=== PATIENT | male | born 1975 | race American Indian/Alaskan Native ===

== ENCOUNTER 2021-12-06 05:25 | Emergency (ER) | payer OTHER ==
[2021-12-06] MEDS ORDERED: SODIUM CHLORIDE 0.9% 1000 ML 1,000 ML IV ONE (05:34)
[2021-12-06] MEDS ORDERED: SODIUM CHLORIDE 0.9% 1000 ML 1,000 ML ONE (05:36)
[2021-12-06 05:57] LABS: Basophils % (Auto) 0.6 % (0.0-1.8); Eosinophils % (Auto) 0.8 % (0.0-4.3); Hematocrit 36.5 % (35.5-45.6); Hemoglobin 12.9 gm/dl (11.8-15.2); Mean Corpuscular HGB Conc 35 % (32-34); Mean Corpuscular Volume 87 fl (84-94); Monocytes # (Auto) 0.5 K/mm3 (0.0-0.8); Monocytes % (Auto) 8.1 % (0.0-7.3); Red Blood Count 4.21 M/mm3 (3.65-5.03); Red Cell Distribution Width 13.7 % (13.2-15.2)
[2021-12-06 05:58] LABS: Platelet Count 384 K/mm3 (140-440)
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
[2021-12-06 06:10] LABS: INR 0.88 (0.87-1.13)
[2021-12-06] MEDS ORDERED: fentaNYL 100 MCG/2 ML INJ IV ONE (06:11)
[2021-12-06] MEDS ORDERED: BUPIVACAINE/PF (0.5%) 5 MG/1 ML 30 ML VIAL INFILTRATI ONE (06:11)
[2021-12-06] MEDS ORDERED: ONDANSETRON 4 MG/2 ML INJ IV ONE (06:11)
--- NOTE | 2021-12-06 06:14 | XRay Report ---
XR chest 1V ap INDICATION / CLINICAL INFORMATION: Trauma. COMPARISON: None available. FINDINGS: SUPPORT DEVICES: None. HEART /PULMONARY VASCULATURE: No significant abnormality. LUNGS / PLEURA: No significant pulmonary or pleural abnormality. No pneumothorax. IMPRESSION: 1. No acute findings. Signer Name: Perry Bay MD Signed: 12/06/2021 6:10 AM Workstation Name: [id number]
--- NOTE | 2021-12-06 06:15 | XRay Report ---
Right hand, 4 views HISTORY: Trauma COMPARISON: None FINDINGS: There is evidence of soft tissue injury involving the right ring and small fingers. No radi opaque foreign body is identified. There is no evidence of acute fracture or malalignment. IMPRESSION: No acute osseous findings of the right hand. Signer Name: Perry Bay MD Signed: 12/06/2021 6:11 AM Workstation Name: [id number]
--- NOTE | 2021-12-06 06:17 | XRay Report ---
Left forearm, 3 views HISTORY: Trauma COMPARISON: None FINDINGS: There is evidence of soft tissue injury of the radial aspect of the distal forearm with sma ll fracture of the cortex of the distal left radius. No additional fracture is identified. Left elbow joint is intact. Signer Name: Perry Bay MD Signed: 12/06/2021 6:13 AM Workstation Name: [id number]
--- NOTE | 2021-12-06 06:21 | XRay Report ---
XR shoulder 2+V LT INDICATION / CLINICAL INFORMATION: Trauma COMPARISON: None available. FINDINGS: BONES / JOINT(S): No acute fracture or subluxation. No significant arthritis. SOFT TISSUES: No significant abnormality. ADDITIONAL FINDINGS: None. IMPRESSION: No acute osseous findings in the left shoulder. Signer Name: Perry Bay MD Signed: 12/06/2021 6:17 AM Workstation Name: [id number]
[2021-12-06] MEDS ORDERED: TETANUS,DIPHTHERIA TOXOID ADULT 0.5 ML INJ IM ONE (06:35)
[2021-12-06] MEDS ORDERED: SODIUM CHLORIDE IRRI 500 ML 500 ML IR ONE (06:39)
[2021-12-06 06:45] LABS: Bilirubin,Urine NEG (Negative); Blood,Urine SM (Negative); Color,Urine Straw (Yellow); Urobilinogen,Urine < 2.0 mg/dL (<2.0)
[2021-12-06 06:49] LABS: Albumin 4.2 g/dL (3.9-5)
[2021-12-06 06:51] LABS: RBC,Urine < 1.0 /HPF (0.0-6.0)
[2021-12-06 06:52] LABS: Amphetamine Screen,Urine Negative; Benzodiazepines Screen,Urine Negative; Cannabinoid Screen,Urine Negative; Cocaine Screen,Urine Negative; Methadone Screen,Urine Negative; Opiate Screen,Urine Negative
[2021-12-06] MEDS ORDERED: POTASSIUM CHLORIDE ER 20 MEQ TAB PO ONE (07:58)
[2021-12-06 08:49] VITALS: BP 138/72
--- NOTE | 2021-12-10 17:09 | Electrocardiograph Report ---
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
== END 2021-12-06 09:07 | disposition home or self-care (01) ==
LOC: ED 05:25
DX: S61.412A Laceration without foreign body of left hand, initial encounter (principal); W26.8XXA Contact with other sharp object(s), not elsewhere classified, initial encounter; Y93.89 Activity, other specified; Y92.89 Other specified places as the place of occurrence of the external cause; Y99.8 Other external cause status; S61.411A Laceration without foreign body of right hand, initial encounter; S52.309A Unspecified fracture of shaft of unspecified radius, initial encounter for closed fracture
CPT/HCPCS: 12002; 29125; 36415; 71045; 73030; 73090; 73130; 80053; 80307; 81001; 85025; 85610; 86850; 86900; 86901; 90471; 90714; 93005; 93010; 96361; 96365; 96375; 99284; J0690; J2405; J3010; J3490; J7030; 80320; Q0162; G0480